=== PATIENT | female | born 1975 | race Caucasian/White ===

== ENCOUNTER 2021-06-01 01:26 | Emergency (ER) | payer SELFPAY ==
--- NOTE | ~2021-06-01 | CT_ITS ---
EXAMINATION: CT abdomen pelvis wo con DATE: 06/01/2021 06:13 INDICATION: Bilateral flank pain. Dysuria. TECHNIQUE: Computed tomography (CT) of the abdomen and pelvis was performed without intravenous contr ast. Automated exposure control and iterative reconstruction technique were employed. Exam dose: 177 .86 mGy-cm total exam DLP. COMPARISON: None. FINDINGS: Minimal bilateral lower lobe dependent atelectasis. Normal heart size. Trace pericardial fluid. No pleural effusion. There is some focal hepatic steatosis Fissure for the ligamentum teres. Right hepatic 1.4 cm cyst. The liver is otherwise unremarkable. Gallbladder appears contracted. No bile duct or pancreatic duct dilatation. No pancreatic mass lesion or calcification. Normal splenic size. Normal morphology of the adrenal glands. No renal mass lesion or urinary tract calculus or hydroureteronephrosis. There is mild diffuse thicke bon of the urinary bladder wall. Normal retrocecal appendix. No bowel obstruction, bowel wall thickening, pneumatosis or intraperitoneal free air. Normal caliber of the abdominal aorta. No intraperitoneal or retroperitoneal or pelvic mass lesion or adenopathy or ascites. Small fat-containing umbilical hernia. Included skeletal structures are unremarkable. IMPRESSION: Mild diffuse thickening of the urinary bladder wall; cystitis cannot be excluded No urinary tract calculus or hydroureteronephrosis Normal appendix Reviewed, dictated and finalized at [facility]. Reviewed, dictated and finalized at [facility]. IMPRESSION: Mild diffuse thickening of the urinary bladder wall; cystitis eleni ot be excluded No urinary tract calculus or hydroureteronephrosis Normal appendix
--- NOTE | ~2021-06-01 | XR_ITS ---
EXAMINATION: XR abdomen/kub 1V DATE: 06/01/2021 06:15 INDICATION: Right flank pain. TECHNIQUE: A supine view of the abdomen was obtained. COMPARISON: CT abdomen and pelvis 06/01/2021 FINDINGS: There are no dilated loops of bowel. There is a moderate volume of stool in the colon. Ther e are phleboliths in the pelvis. IMPRESSION: 1. No visible urolithiasis. Reviewed, dictated and finalized at [facility]. IMPRESSION: 1. No visible urolithiasis.
[2021-06-01 01:31] VITALS: BP 94/68; PULSE 100; RESP 18; TEMP 36.6; O2SAT 100
[2021-06-01 02:02] LABS: Basophils Percent Auto 0.9 % (0.2-1.2); Eosinophils Absolute Auto 0.1 K/mm3 (0-0.3); Eosinophils Percent Auto 1.2 % (0-4.4); Hematocrit 41.2 % (37.0-47.0); Hemoglobin 13.2 g/dL (12.0-15.0); Immature Granulocyte Absolute 0.01 K/mm3 (0.00-0.031); Immature Granulocyte Percent A 0.2 % (0-0.5); Lymphocytes Absolute Auto 1.27 K/mm3 (0.9-3.2); Lymphocytes Percent Auto 30.1 % (18.3-44.2); Mean Corpuscular Hemoglobin 30.8 pg (26-34); Mean Platelet Volume 10.3 fl (7.4-10.4); Monocytes Absolute Auto 0.6 K/mm3 (0.1-0.6); Monocytes Percent Auto 13.7 % (2.6-8.5); Neutrophils Absolute Auto 2.3 K/mm3 (1.3-6.7); Neutrophils Percent Auto 53.9 % (45.5-73.1); Platelet Count Result 230 k/mm3 (150-375); Red Blood Count 4.29 M/mm3 (4.2-5.4); Red Cell Distribution Width 12.1 % (11.5-14.5); White Blood Count 4.2 K/mm3 (4.5-10.0)
[2021-06-01 02:11] LABS: Alanine Aminotransferase 18 U/L (4-35); Albumin Level 4.4 g/dL (3.5-5.1); Alkaline Phosphatase 110 U/L (38-126); Anion Gap 10 mmol/L (8-16); Aspartate Amino Transferase 25 U/L (14-36); Bilirubin,Total 0.4 mg/dL (0.2-1.3); Blood Urea Nitrogen 10 mg/dL (7-17); Calcium 9.4 mg/dL (8.4-10.2); Carbon Dioxide 25 mmol/L (22-30); Chloride 102 mmol/L (98-107); Estimated CRCL calculation 71 ml/min; Estimated Glomerular Filt Rate > 60; Glucose 103 mg/dL (65-110); Lipase 67 U/L (23-300); Potassium 4.1 mmol/L (3.4-5.0); Sodium 137 mmol/L (137-145)
[2021-06-01 04:00] VITALS: BP 101/73; PULSE 89; RESP 14; O2SAT 95
[2021-06-01 04:14] LABS: Add Urine Microscopic? YES; Appearance Urine Cloudy (Clear); Bacteria Urine Trace /hpf; Bilirubin Urine Negative (Negative); Blood Urine 3+ (Negative); Color Urine Yellow (Yellow); Glucose Urine UA Negative (Negative); Ketones Urine Negative (Negative); Leukocyte Esterase Ur 3+ LEU/UL (Negative); Mucus Urine Heavy /lpf; Nitrate Urine Negative (Negative); Protein Urine 1+ mg/dL (Negative); RBC Urine >75 /hpf (0-2); Specific Grav Ur 1.016 (1.001-1.035); Squamous Epithelial Cell Urine Occasional /hpf (Few); Urobilinogen Urine Negative mg/dL (<2.0); WBC Urine >75 /hpf
[2021-06-01 05:00] VITALS: BP 125/74; PULSE 74; RESP 14; O2SAT 97
[2021-06-01 06:00] VITALS: BP 117/74; PULSE 80; RESP 17; O2SAT 95
[2021-06-01] MEDS: cefTRIAXone 1 GM VIAL IM (06:25)
--- NOTE | 2021-06-01 06:47 | ED.ABDPAIN ---
HPI - Abdominal Pain General Chief Complaint: Abdominal Pain Stated Complaint: kidney infection - peeing blood Time Seen by Provider: 06/01/21 04:28 Source: patient Mode of arrival: ambulatory Limitations: no limitations History of Present Illness HPI narrative: This is a 46 year old female who presents for evaluation for lower abdominal pain and hematuria. Patient reports lower abdominal pain and bilateral flank pain for 1 -2 days. She also reports she has painful urination and blood in her urine. She reports subjective fever, chills, but she denies nausea and vomiting. She denies having lower abdominal pain. She does have right lower back pain. Related Data Home Medications Medication Instructions Recorded Confirmed albuterol mcg INHALATION 06/01/21 aspirin mg 06/01/21 cyanocobalamin (vitamin B-12) tablet PO 06/01/21 [Vitamin B-12] Allergies Allergy/AdvReac Type Severity Reaction Status Date / Time No Known Allergies Allergy Verified 06/01/21 01:33 Review of Systems Review of Systems: All systems reviewed & are unremarkable except as noted in HPI and below PMFSH Past Medical History Medical History (Updated 06/01/21 @ 08:18 by Gela Dhillon MD) Patient denies medical problems Social History Social History (Updated 06/01/21 @ 06:51 by Gela Dhillon MD) Smoking status: Never smoker Gender identity (if verbalized by the patient): Female Sexual Orientation (if Verbalized by the Patient): Straight or Heterosexual Exam Const: General: no acute distress and alert Orientation/consciousness: patient oriented x3 HENMT: Face and sinus: no sinus tenderness Eyes: EOM: EOMs intact bilaterally Chest: Chest palpation & inspection: normal inspection of the chest Resp: Effort & Inspection: normal respiratory effort and no retractions Auscultation: clear to auscultation bilaterally Cardio: Rate: regular rate Rhythm: regular rhythm Heart sounds: no murmurs GI: GI Palp: Yes Soft to palpation, Yes Tenderness to palpation present (GI) (RLQ), No Guarding due to palpation present (GI) and No Rigid due to palpation Auscultation: normal bowel sounds : General: Yes no CVA tenderness Back/Spine/Pelvis: Back: no CVA tenderness Skin: General skin exam: normal color Rashes: no rashes Neuro: General: patient oriented x3, moves all extremities and CN's II-XI intact bilaterally Psych: Mental Status: mental status grossly normal Affect: normal affect Course Reevaluation(s) Reevaluation #1: PAtient given antibiotics for cystitis. No kidney stone or appendicitis seen on CT. Date: 06/01/21 Time: 08:16 Vital Signs Vital signs: Vital Signs Temperature 97.8 F 06/01/21 01:31 Pulse Rate 100 06/01/21 01:31 Respiratory Rate 18 06/01/21 01:31 Blood Pressure 94/68 L 06/01/21 01:31 Pulse Oximetry 100 06/01/21 01:31 Temperature 97.8 F 06/01/21 01:31 Pulse Rate 80 06/01/21 06:00 Respiratory Rate 17 06/01/21 06:00 Blood Pressure 117/74 06/01/21 06:00 Pulse Oximetry 95 06/01/21 06:00 MDM - Abdominal Pain Lab Data Attestation: I reviewed the patient's lab results. Result diagrams: 06/01/21 01:55 06/01/21 01:55 Labs: Lab Results 06/01/21 06/01/21 06/01/21 Range/Units 01:55 01:55 03:58 WBC 4.2 L (4.5-10.0) K/mm3 RBC 4.29 (4.2-5.4) M/mm3 Hgb 13.2 (12.0-15.0) g/dL Hct 41.2 (37.0-47.0) % MCV 96.0 (80-100) fl MCH 30.8 (26-34) pg MCHC 32.0 (32-36) g/dl RDW 12.1 (11.5-14.5) % Plt Count 230 (150-375) k/mm3 MPV 10.3 (7.4-10.4) fl Immature Gran % (Auto) 0.2 (0-0.5) % Neut % (Auto) 53.9 (45.5-73.1) % Lymph % (Auto) 30.1 (18.3-44.2) % Stewart % (Auto) 13.7 H (2.6-8.5) % Eos % (Auto) 1.2 (0-4.4) % Baso % (Auto) 0.9 (0.2-1.2) % Lymph # (Auto) 1.27 (0.9-3.2) K/mm3 Stewart # (Auto) 0.6 (0.1-0.6) K/mm3 Eos # (Auto) 0.1 (0-0.3) K/mm3
[2021-06-01 08:49] VITALS: BP 93/61; PULSE 90; RESP 16; O2SAT 96
== END 2021-06-01 08:45 | disposition home or self-care (01) ==
PROVIDERS: Emergency Provider General Practice
DX: N30.91 Cystitis, unspecified with hematuria (principal)
CPT/HCPCS: 36415; 74018; 74176; 80053; 81001; 81025; 83690; 85025; 87077; 87086; 87088; 96372; 99284; J0696